=== PATIENT | female | born 1960 | race Two or more races ===

== ENCOUNTER 2020-06-06 19:16 | Emergency (ER) | payer OTHER ==
[2020-06-06 19:24] VITALS: BP 154/81; PULSE 75; TEMP 99; BMI 27.4
[2020-06-06] MEDS ORDERED: MECLIZINE HCL 25 MG TABLET (FP) PO ONE (19:34)
[2020-06-06] MEDS ORDERED: MECLIZINE HCL 25 MG TABLET (FP) ONE (19:35)
[2020-06-06 20:11] LABS: BASO % 0.7 % (0-2.0); EOS % 1.8 % (0-4.5); HEMATOCRIT 43.9 % (32.4-45.2); HEMOGLOBIN 14.9 GM/dl (10.7-15.3); LYMPH % 29.2 % (8-40); MCH 33.9 pg (25.7-33.7); MCHC 33.9 g/dl (32.0-36.0); MEAN PLT VOLUME 8.1 fl (7.5-11.1); MONO % 5.2 % (3.8-10.2); NEUT % 63.1 % (42.8-82.8); PLATELET COUNT 366 K/MM3 (134-434); RBC 4.39 M/mm3 (3.60-5.2); RDW 11.8 % (11.6-15.6); WHITE BLOOD COUNT 6.6 K/mm3 (4.0-10.8)
[2020-06-06 20:25] LABS: ALBUMIN 4.5 g/dl (3.4-5.0); BILIRUBIN,TOTAL 0.8 mg/dl (0.2-1); CALCIUM 9.5 mg/dl (8.5-10); CREATININE 0.9 mg/dl (0.55-1.3); POTASSIUM 4.1 mmol/L (3.5-5.1); TOT PROT 7.7 g/dl (6.4-8.2)
== END 2020-06-06 21:00 | disposition home or self-care (01) ==
LOC: FER 19:16
DX: H81.4 Vertigo of central origin (principal)
CPT/HCPCS: 36415; 80053; 82550; 84484; 85025; 93005; 99284-25